=== PATIENT | female | born 1955 | race Caucasian/White ===

== ENCOUNTER → 2017-02-07 | Outpatient (CLI) | payer BC ==
[~2017-02-07] MED LIST: ASCA500 PO; B-CO1TAB53 PO; CALC600T9 PO; CALCTAB5 PO; CHOL2000 PO; CYAN10005 PO; GLUC10007 PO; GLUCTAB7 PO; JUICE FESTIVE PO; LEVO75TA5 PO; LEVO88TA PO; LUTE6TAB PO; MULT-506 PO; VITA400C15 PO
--- NOTE | 2017-02-08 14:09 | MAMMOGRAPHY REPORT ---
BILATERAL DIGITAL SCREENING MAMMOGRAM TOMOSYNTHESIS WITH CAD: 02/07/2017 CLINICAL HISTORY: Routine screening. Patient has no complaints. TECHNIQUE: Breast tomosynthesis in addition to standard 2D mammography was performed. Current study was also evaluated with a Computer Aided Detection (CAD) system. COMPARISON: Comparison is made to exams dated: 01/18/2016 mammogram, 01/14/2014 mammogram, 01/15/2015 jeremy mogram, 12/14/2012 mammogram, 12/14/2011 mammogram, and 12/13/2010 mammogram - [facility] BREAST COMPOSITION: There are scattered areas of fibroglandular density in both breasts. FINDINGS: No suspicious mass, architectural distortion or cluster of microcalcifications is seen. IMPRESSION: ACR BI-RADS CATEGORY 1: NEGATIVE There is no mammographic evidence of malignancy. A 1 year screening mammogram is recommended. The p atient will receive written notification of the results. Approximately 10% of breast cancers are not detected with mammography. A negative mammographic repor t should not delay biopsy if a clinically suggestive mass is present. Brenda spaulding/jeff:02/07/2017 16:46:21 Slab Lifting Engineer: Nicole WOOD(Chase)([place]), [facility] letter sent: Normal 1/2 BI-RADS Code: ACR BI-RADS Category 1: Negative
== END | disposition home or self-care (01) ==
LOC: C.MAMM 14:39
PROVIDERS: ATTEND Obstetrics & Gynecology
DX: Z12.31 Encounter for screening mammogram for malignant neoplasm of breast (principal)

== ENCOUNTER → 2017-03-03 | Outpatient (CLI) | payer BC ==
[~2017-03-03] MED LIST changes: -B-CO1TAB53 PO; -CALC600T9 PO; -GLUCTAB7 PO; -JUICE FESTIVE PO; -LEVO88TA PO
--- NOTE | 2017-03-03 13:48 | MAMMOGRAPHY REPORT ---
ULTRASOUND OF LEFT BREAST: 03/03/2017 CLINICAL HISTORY: The patient reports a painful erythematous lump at the beginning of January in her ster nal region. She was placed on antibiotics and her symptoms resolved. She feels an intermittent tiny residual lump in the region but no longer has any pain or erythema. COMPARISON: Comparison is made to exams dated: 02/07/2017 mammogram and 01/18/2016 mammogram - [facility]. TECHNIQUE: Real-time targeted ultrasound was performed of the left sternal region. FINDINGS: Real-time, high resolution targeted ultrasound was performed of the area of the prior erythematous pa inful lump pointed out by the patient in the midsternal region. At the site of the palpable lump the re is a small elongated ill-defined hypoechoic region within the skin, measuring 7 x 1 x 7 mm. Given the intradermal location, it is benign and given the clinical history likely represents a resolving inflammatory/infectious skin process such as an inflamed/infected epidermal inclusion or sebaceous cy st. No suspicious mass is noted. IMPRESSION: ACR BI-RADS CATEGORY 2: BENIGN Ill-defined 7 x 1 mm hypoechoic region within the skin at the site of the prior erythematous painful lump in the sternal region. Given the clinical history and given the intradermal location, it is clari ign and likely represents a resolving inflammatory/infectious process such as an inflamed/infected ep idermal inclusion or sebaceous cyst. There is no sonographic evidence of malignancy. Recommend clinical follow-up. Return to annual mammogram screening schedule is recommended. The pat ient was verbally notified of the results. Johanna Gaona M.D. ah/:03/03/2017 10:01:09 Lap Grinder: Maribel BARTHOLOMEW)([place]), [facility] letter sent: Normal 1/2 BI-RADS Code: ACR BI-RADS Category 2: Benign
== END | disposition home or self-care (01) ==
LOC: C.MAMM 09:39
PROVIDERS: ATTEND Nurse Practitioner Adult Health
DX: L98.9 Disorder of the skin and subcutaneous tissue, unspecified (principal)

== ENCOUNTER → 2017-04-26 | Day surgery (SDC) | payer BC ==
[2017-04-14 11:05] VITALS: BMI 26.0
[~2017-04-26] VITALS: Ht 157.5 cm; Wt 65.9 kg
[~2017-04-26] MED LIST changes: +B-CO1TAB53 PO; +CALC600T9 PO; -CALCTAB5 PO; +EpHEDrine SULFATE 50MG/5ML SYR ONE; -GLUC10007 PO; +GLUCTAB7 PO; +JUICE FESTIVE PO; -LEVO75TA5 PO; +LEVO88TA PO; +LIDOCAINE HCL 2% 2 ML VIAL (20MG/ML) ONE; -LUTE6TAB PO; +PROPOFOL IV EMULSION 10 MG/ML 20 ML VIAL IV ONE; +SODIUM CHLORIDE 0.9% 500ML 500 ML IV ONE
[2017-04-26 09:43] VITALS: TEMP 36.4
--- NOTE | 2017-04-26 09:43 | Endo History and Physical ---
History & Physical Date of Service: Apr 26, 2017. Chief Complaint: History of colon polyps Referring Physician: Dr. Barraza History of Present Illness 61 yo CF who presents for colonoscopy secondary to history of colon polyps. Past Medical History Arthritis, Thyroid Disease Past Surgical History Hx Cardiac Surgery: No Hx Internal Defibrillator: No Hx Pacemaker: No Hx Abdominal Surgery: No Hx of Implantable Prosthesis: No Hx Post-Op Nausea and Vomiting: No Hx Cancer Surgery: No Hx Thoracic Surgery: No Hx Orthopedic: Yes (LT TISHA) Hx Urinary Tract Surgery: No Family History None Social History Smoking Status: Never Smoker Hx Substance Use: No Hx Alcohol Use: Yes (SOCIAL/OCCASIONAL) Allergies Coded Allergies: Sulfamethoxazole w/Trimethoprim (Verified Allergy, Severe, RASH, 04/26/17) Current Medications Reported Home Medications Medications Dose Route/Sig Max Daily Dose Days Date Category [Juice Festive] 2 Tabs PO QPM 04/14/17 Reported Calcium + D (Calcium Carbonate-Vitamin D) 1 Tab Tab 1 Tab PO QPM 04/14/17 Reported Glucosamine Chondroitin (Ehqfuunnwjp-Loegatfxswe-Bgu C-) 1 Tab Tab 1 Tab PO QPM 04/14/17 Reported Super B-Complex (B-Complex W/Biotin & Folic Aci) 1 Tab Tab 1 Tab PO QPM 04/14/17 Reported Synthroid (Levothyroxine Sodium) 88 Mcg Tab 88 Mcg PO QAM 04/14/17 Reported Vitamin C (Ascorbic Acid) 500 Mg Tab 500 Mg PO QPM 01/26/16 Reported Vitamin E (he-Szjpr-Shqrxzgcaz Acetate) 400 Inter.unit Cap 400 Inter.unit PO QPM 01/26/16 Reported Vitamin B-12 (Cyanocobalamin) 1,000 Mcg Tab 1,000 Mcg PO QPM 01/26/16 Reported Vitamin D3 (Cholecalciferol) 2,000 Unit Cap 1 Cap PO QPM 05/11/15 Reported Multivitamin (Multivitamins) Tab 2 Tab PO QPM 05/11/15 Reported Vital Signs Weight (Kilograms): 65.91 Height (Feet): 5 Height (Inches): 2 Physical Exam General Appearance: WD/WN, no apparent distress Respiratory/Chest: Auscultation: breath sounds normal Cardiovascular: Heart Auscultation: RRR Abdomen: Bowel Sounds: normal Inspection & Palpation: soft, non-distended, no tenderness, guarding & rebound Assessment and Plan Assessment: 61 yo CF who presents for colonoscopy secondary to history of colon polyps. Plan: Proceed with colonoscopy.
[2017-04-26 09:44] VITALS: Ht 157.5 cm; Wt 65.9 kg
--- NOTE | 2017-04-26 11:14 | GI REPORT ---
Procedure Date: 04/26/2017 10:37 AM THIS REPORT HAS BEEN AMENDED Addendum Number: 1 Addendum Date: 04/26/2017 11:28:07 AM Polyp was not collected for histologic evaluation. Recommend repeat colonoscopy in 5 years. Procedure: Colonoscopy Indications: Screening for colorectal malignant neoplasm Medicines: Monitored Anesthesia Care Complications: No immediate complications. Estimated Blood Loss: Estimated blood loss: none. Procedure: Pre-Anesthesia Assessment: - Prior to the procedure, a History and Physical was performed, and patient medications and allergies were reviewed. The patient's tolerance of previous anesthesia was also reviewed. The risks and benefits of the procedure and the sedation options and risks were discussed with the patient. All questions were answered, and informed consent was obtained. Prior Anticoagulants: The patient has taken no previous anticoagulant or antiplatelet agents. ASA Grade Assessment: II - A patient with mild systemic disease. After reviewing the risks and benefits, the patient was deemed in satisfactory condition to undergo the procedure. After I obtained informed consent, the scope was passed under direct vision. Throughout the procedure, the patient's blood pressure, pulse, and oxygen saturations were monitored continuously. The scope was introduced through the anus and advanced to the terminal ileum. The colonoscopy was performed without difficulty. The patient tolerated the procedure well. The quality of the bowel preparation was good. The terminal ileum, ileocecal valve, appendiceal orifice, and rectum were photographed. Findings: A 5 mm polyp was found in the ascending colon. The polyp was sessile. The polyp was removed with a hot snare. Resection and retrieval were complete. Multiple small-mouthed diverticula were found in the sigmoid colon. Non-bleeding internal hemorrhoids were found during retroflexion. The hemorrhoids were small. Impression: - One 5 mm polyp in the ascending colon, removed with a hot snare. Resected and retrieved. - Diverticulosis in the sigmoid colon. - Non-bleeding internal hemorrhoids. Recommendation: - Resume previous diet. - Continue present medications. - Repeat colonoscopy for surveillance based on pathology results. - Return to primary care physician as previously scheduled. Elmer Alex BergerDO 04/26/2017 11:14:19 AM This report has been signed electronically. Note Initiated On: 04/26/2017 10:37 AM I attest to the content of the Intraoperative Record and orders documented therein, exceptions below Elmer Johnson Ab, 04/26/2017 11:28:34 AM This report has been signed electronically.
--- NOTE | 2017-04-26 11:19 | Discharge Instructions ---
Endoscopy Patient Instructions Date / Procedure(s) Performed Apr 26, 2017. Colonoscopy Allergy Information Coded Allergies: Sulfamethoxazole w/Trimethoprim (Verified Allergy, Severe, RASH, 04/26/17) Discharge Date / Findings Apr 26, 2017. Colon polyp Diverticulosis Internal hemorrhoids Medication Instructions OK to resume all medications today as prescribed Reported Home Medications Medications Dose Route/Sig Max Daily Dose Days Date Category [Juice Festive] 2 Tabs PO QPM 04/14/17 Reported Calcium + D (Calcium Carbonate-Vitamin D) 1 Tab Tab 1 Tab PO QPM 04/14/17 Reported Glucosamine Chondroitin (Qmnjbtuzkjc-Lqewyjenfor-Vjo C-) 1 Tab Tab 1 Tab PO QPM 04/14/17 Reported Super B-Complex (B-Complex W/Biotin & Folic Aci) 1 Tab Tab 1 Tab PO QPM 04/14/17 Reported Synthroid (Levothyroxine Sodium) 88 Mcg Tab 88 Mcg PO QAM 04/14/17 Reported Vitamin C (Ascorbic Acid) 500 Mg Tab 500 Mg PO QPM 01/26/16 Reported Vitamin E (yh-Zqkvc-Zgtfqesgbm Acetate) 400 Inter.unit Cap 400 Inter.unit PO QPM 01/26/16 Reported Vitamin B-12 (Cyanocobalamin) 1,000 Mcg Tab 1,000 Mcg PO QPM 01/26/16 Reported Vitamin D3 (Cholecalciferol) 2,000 Unit Cap 1 Cap PO QPM 05/11/15 Reported Multivitamin (Multivitamins) Tab 2 Tab PO QPM 05/11/15 Reported Provider Instructions Activity Restrictions - No exercising or heavy lifting for 24 hours. - Do not drink alcohol the day of the procedure. - Do not drive a car or operate machinery until the day after the procedure. - Do not make any important decisions or sign important papers in 24 hours after the procedure. Following Day: - Return to full activity which may include returning to work/school. Diet Start your diet with liquids and light foods (jello, soup, juice, toast). Then eat your usual diet if not nauseated. Treatment For Common After Affects For mild abdominal pain, bloating, or excessive gas: - Rest - Eat lightly - Lie on right side Follow-Up Information Follow-up with DR VALADEZ as scheduled Anesthesia Information What You Should Know You have had a procedure that required some medicine to reduce anxiety and discomfort. This treatment is called moderate sedation. After receiving the treatment, you may be sleepy, but you will be able to breathe on your own. The effects of the treatment may last for several hours. Follow these instructions along with Activity/Diet recommendations noted above: * Do NOT do anything where dizziness or clumsiness would be dangerous. * Rest quietly at home today, then you can be up and about tomorrow. * Have a responsible person stay with you the rest of today. * You may have had an I.V. today. If so, you may take the dressing off later today. Recommendations Call your doctor if: * Trouble breathing * Continuous vomiting for more than 24 hours * Temperature above 101 degrees * Severe abdominal pain or bloating * Pain not relieved by pain medicine ordered * There is increased drainage or redness from any incision * A large amount of rectal bleeding greater than 2-3 tablespoons. (If you had a polyp/s removed or have hemorrhoids, a small amount of blood - from the rectum is to be expected.) * You have any unanswered questions or concerns. IN THE EVENT OF A SERIOUS EMERGENCY, GO TO THE NEAREST EMERGENCY ROOM Your discharge instructions were prepared by provider Elmer Berger. Patient Instructions Signature Page Carissa Stephen Patient (or Guardian) Signature/Date: I have read and understand the instructions given to me by my caregivers. Caregiver/RN/Doctor Signature/Date: The above-named patient and/or guardian has received patient instructions on this date. + Original Patient Signature Page (only) stays with chart. Please make copy for patient.
[2017-04-26 11:46] VITALS: BP 130/75; PULSE 66; O2SAT 100
--- NOTE | 2017-04-26 12:04 | Anesthesiology Progress Note ---
Anesthesia Post Op Note Date & Time Apr 26, 2017 at 12:04 Vital Signs Pain Intensity: 0 Vital Signs Past 12 Hours Date Time Temp Pulse Resp B/P (MAP) Pulse Ox O2 Delivery O2 Flow Rate FiO2 04/26/17 11:46 66 20 130/75 (93) 100 Room Air 04/26/17 11:31 71 20 118/68 (85) 99 Room Air 04/26/17 11:16 91 20 91/62 (72) 100 Room Air 04/26/17 09:43 36.4 70 20 148/72 (97) 96 Room Air Notes Mental Status: alert / awake / arousable, participated in evaluation Pt Amnestic to Procedure: Yes Nausea / Vomiting: adequately controlled Pain: adequately controlled Airway Patency, RR, SpO2: stable & adequate BP & HR: stable & adequate Hydration State: stable & adequate Anesthetic Complications: no major complications apparent
== END | disposition home or self-care (01) ==
LOC: C.GI 09:23
PROVIDERS: ATTEND Internal Medicine
DX: Z12.11 Encounter for screening for malignant neoplasm of colon (principal); D12.2 Benign neoplasm of ascending colon; K57.30 Diverticulosis of large intestine without perforation or abscess without bleeding; K64.8 Other hemorrhoids; Z86.010 Personal history of colon polyps; E07.9 Disorder of thyroid, unspecified; M19.90 Unspecified osteoarthritis, unspecified site; Z79.899 Other long term (current) drug therapy

== ENCOUNTER 2024-08-05 05:00 | Observation (INO) ==
--- NOTE | 2024-07-03 10:44 | PAT Medication Instructions ---
Medication Instructions Date of Service July 03, 2024 Home Medications Medication Instructions Recorded levothyroxine 100 mcg tablet 100 mcg PO QAM #90 tabs 07/11/23 calcium carbonate 1,200 mg PO QAM multivitamin 1 tab PO QAM vitamin B complex 1 tab PO DAILY Digestive Advantage Prob Gummy 2 tab PO QAM Vitamin C 2 cap PO QAM cholecalciferol (vitamin D3) 50 mcg (2,000 unit) tablet (Vitamin D3) 100 mcg PO QAM vitamin E 400 unit tablet 400 unit PO QAM levothyroxine 100 mcg tablet 100 mcg PO QAM STOP taking 2 weeks before surgery (or as soon as possible if surgery is within 2 weeks) vitamin E 400 unit tablet 400 unit PO QAM DO NOT take the morning of surgery calcium carbonate 1,200 mg PO QAM multivitamin 1 tab PO QAM vitamin B complex 1 tab PO DAILY Digestive Advantage Prob Gummy 2 tab PO QAM Vitamin C 2 cap PO QAM cholecalciferol (vitamin D3) 50 mcg (2,000 unit) tablet (Vitamin D3) 100 mcg PO QAM Take morning of surgery With a small sip of water, OTHERWISE NOTHING TO EAT OR DRINK AFTER MIDNIGHT: levothyroxine 100 mcg tablet 100 mcg PO QAM Other Notes If you have any questions please call us at [phone] or [phone] or [phone] or [phone]
--- NOTE | 2024-07-11 09:42 | Anesthesiology Consultation ---
Date of Service July 11, 2024 Assessment & Plan (1) Encounter for pre-operative examination: - PCP clearance 05/07/24 MN: "...here at the request of her surgeon...Using the revised cardiac cardiac index, she is at low risk for adverse outcomes with non- cardiac surgery. She is acceptable risk for surgery..." - Outpatient joint assessment: Patient is currently scheduled for inpatient pathway. If re-evaluated and patient/surgeon requests outpatient pathway, patient is acceptable candidate for outpatient joint program from anesthesia standpoint pending surgeon's office assessment of pt motivation/support/completion of same day joint program preop requirements. Chart Review Chart Review: Acceptable Risk for Surgery and Patient seen in Pre Admission Testing Teaching & Discussion Pre-Anesthesia Teaching/Discussion Notes: Instructed NPO after midnight before surgery, except medications with 15 cc of water. Medication instructions provided according to the PAT guidelines. History Surgery Operation Date: 08/05/24 08:50 Proposed Procedures p Right Total Hip Arthroplasty - Jimmy Jacobo MD Height/Weight Height: 5 ft 1 in Weight: 76.2 kg Allergies Allergy/AdvReac Type Severity Reaction Status Date / Time amoxicillin Allergy Severe Rash Verified 07/03/24 09:37 Bactrim Allergy Severe RASH Verified 04/26/17 09:41 sulfamethoxazole Allergy Severe RASH Verified 07/03/24 09:37 trimethoprim Allergy Severe RASH Verified 07/03/24 09:37 Medications Home Medications Medication Instructions Recorded Confirmed Last Taken calcium carbonate 1,200 mg PO QAM 02/04/22 07/03/24 04/24/22 multivitamin 1 tab PO QAM 02/04/22 07/03/24 04/24/22 vitamin B complex 1 tab PO DAILY 02/04/22 07/03/24 04/24/22 Digestive Advantage Prob Gummy 2 tab PO QAM 04/19/22 07/03/24 04/24/22 Vitamin C 2 cap PO QAM 04/19/22 07/03/24 04/24/22 cholecalciferol (vitamin D3) 50 100 mcg PO QAM 04/19/22 07/03/24 04/24/22 mcg (2,000 unit) tablet (Vitamin D3) vitamin E 400 unit tablet 400 unit PO QAM 04/19/22 07/03/24 04/24/22 levothyroxine 100 mcg tablet 100 mcg PO QAM #90 tabs 07/11/23 07/03/24 Unknown Past Medical History Medical History (Updated 07/11/24 @ 09:51 by Jacqueline Marr PA-C) Arthritis Diverticular disease denies diverticulitis Dyslipidemia History of anxiety History of depression Hypothyroidism Osteopenia Patient denies h/o stroke, seizures, heart attack, heart failure, DM, HTN, blood clots/DVTs or blood transfusions. Exercise / Class Metabolic Activity II 4-5 Yardwork/Stairs/Walk up hill (denies chest discomfort or shortness of breath with one flight of stairs) Past Family History Family History Mother Myocardial infarction Diabetes Father Diabetes Sister Asthma Other Colon cancer Denies family history of Ovarian cancer Prostate cancer Breast cancer Past Surgical History Surgical History History of cataract surgery bilat History of hip replacement left hip may 2015 History of tooth extraction dental implant Hx of colonoscopy Past Anesthesia History No Hx of Anesthesia Complications and No Family Hx of Anesthesia Complications History of PONV No Hx of PONV and No Hx of Motion Sickness Social History Smoking Status: Never smoker Do You Dip or Chew Tobacco: No Hx Alcohol Use: Yes Alcohol type: wine alcohol intake frequency: a few times a week Hx Substance Use: No substance use type: does not use Review of Systems Patient denies chest pain, shortness of breath, dyspnea on exertion, snoring, witnessed apneas, reflux, fever, chills, cough, wheezing, or palpitations. Physical Exam Vital Signs Vitals BP 132/83 P 71 TEMP 98.2 SP02 98% on RA RESP 18 Physical Patient resting comfortably in chair in no acute distress, alert and oriented, responding appropriately throughout visit Full cervical extension range of motion without pain TMD 3.5 finger breadths Mallampati Score 2 Dentition: implant, denies chipped or loose teeth, caps/crowns, or bridges Lungs: normal respiratory effort. Good air movement, clear throughout to auscultation, no adventitious breath sounds Cardiac: regular rate and rhythm, no murmurs noted Carotid arteries: negative bruit bilat Lab Results Anesthesia Preop Results Results Anesthesia Widget: WBC 7.94 K/ul (4.8-10.8) 07/11/24 Hgb 13.8 g/dl (12.0-16.0) 07/11/24 Hct 40.0 % (37.0-47.0) 07/11/24 Plt 292 K/uL (130-400) 07/11/24 Na 140 mmol/L (136-145) 07/11/24 K 4.0 mmol/L (3.5-5.1) 07/11/24 Cl 109 mmol/L (98-107) H 07/11/24 CO2 22 mmol/L (21-32) 07/11/24 BUN 22 mg/dl (6-23) 07/11/24 Creat 0.92 mg/dl (0.6-1.2) 07/11/24 Glucose Level 107 mg/dl (70-99(Fasting)) H 07/11/24 PT 10.6 Seconds (9.0-12.0) 07/11/24 PTT 26 Seconds (21-31) 07/11/24 INR 1.0 (0.9-1.1) 07/11/24 Blood Type O Positive 07/11/24 Antibody Screen NEGATIVE 07/11/24 Testing Electrocardiogram Date: 07/11/24 NSR, rate 72 bpm Right atrial enlargement Nonspecific ST abnormality Chest X-Ray Date: 07/11/24 No acute chest disease.
--- NOTE | 2024-08-02 08:53 | History & Physical Report ---
Date of Service August 02, 2024 Assessment & Plan (1) Arthritis of right hip: 68-year-old female status post a left hip replacement with a in the past with right hip arthritis. As above for couple years. She failed conservative measures. It does appear that the pain is coming from her hip. She like to henriquez ve her hip fixed. Plan will going taken the operating good right total hip replacement. The risks Mente this procedure explained to the patient to include but not limited to a DVT PE infection neurological intravascular bleeding palm pain limb range of motion sepsis incomplete relief of symptoms need for further surgery in the future. The patient understands and desires to proceed. Informed consent was obtained. Will likely use a Prevena VAC postoperatively. She is will stay in the hospital overnight and hopeful discharge postoperative day 1. Will use aspirin for DVT prophylaxis. (2) History of hip replacement: (3) History of colon polyps: (4) Anxiety: (5) Depression: (6) Diverticulosis: (7) Dyslipidemia: (8) Hypothyroidism: History of Present Illness Chief Complaint: . Right hip pain. Primary Care Provider: Brigid Barraza MD . The patient is a 68-year-old female well-known to me from her previous left hip replacement done 2015. She is done well on the side. Over the past 2 years she has developed increased pain discomfort her right hip. She had an intra- articular injection by Dr. Liriano which helped her for short period of time. Scribes mostly groin and thigh pain. Described to gotten worse over time. This is what she remembers as her other hip pain before she had surgery. She would like to have her right hip replaced. Allergies Allergy/AdvReac Type Severity Reaction Status Date / Time amoxicillin Allergy Severe Rash Verified 07/03/24 09:37 Bactrim Allergy Severe RASH Verified 04/26/17 09:41 sulfamethoxazole Allergy Severe RASH Verified 07/03/24 09:37 trimethoprim Allergy Severe RASH Verified 07/03/24 09:37 Home Medications Medication Instructions Recorded Confirmed Type calcium carbonate 1,200 mg PO QAM 02/04/22 07/03/24 History multivitamin 1 tab PO QAM 02/04/22 07/03/24 History vitamin B complex 1 tab PO DAILY 02/04/22 07/03/24 History Digestive Advantage Prob Gummy 2 tab PO QAM 04/19/22 07/03/24 History Vitamin C 2 cap PO QAM 04/19/22 07/03/24 History cholecalciferol (vitamin D3) 50 100 mcg PO QAM 04/19/22 07/03/24 History mcg (2,000 unit) tablet (Vitamin D3) vitamin E 400 unit tablet 400 unit PO QAM 04/19/22 07/03/24 History levothyroxine 100 mcg tablet 100 mcg PO QAM #90 tabs 07/22/24 Rx Past Med/Surg History Problem List Arthritis of right hip History of colon polyps Anxiety (Acute) Depression (Acute) Diverticulosis (Acute) Dyslipidemia (Acute) no meds, monitoring Hypothyroidism (Acute) Internal hemorrhoids (Acute) Osteopenia (Acute) S/P hip replacement (Acute) Vitamin D deficiency (Acute) Medical History Diverticular disease denies diverticulitis Arthritis History of anxiety History of depression Osteopenia Dyslipidemia Hypothyroidism Surgical History History of cataract surgery bilat History of tooth extraction dental implant Hx of colonoscopy History of hip replacement left hip may 2015 Family History Mother Myocardial infarction Diabetes Father Diabetes Sister Asthma Other Colon cancer Denies family history of Ovarian cancer Prostate cancer Breast cancer Social History Smoking Status: Never smoker Second Hand Exposure: No; Do You Dip or Chew Tobacco: No; Tobacco Cessation Education Requested by Patient: No Hx Alcohol Use: Yes Alcohol type: wine Alcohol Intake Frequency: 2-3 x/Week Alcohol Intake Frequency Comment: 1-2 / week Hx Substance Use: No Preferred Language: Danish Communication Ability: Effective Visual Impairment: No Limitations Hearing Ability: Hard of Hearing [place] Operator Required: No Beliefs That Will Affect Care: None marital status: Current Living Situation: Spouse current occupational status: retired current occupation: used to work at [employer] Other Information That Helps Us Care for You: No Feels Safe at Home: Yes Safety Concerns: Feels Safe At This Time Childhood Exposure to Second-Hand Smoke: No Diet: regular caffeine: Yes Dental Care, Regularly: Yes Physical Activity Frequency: Daily Seatbelt Use: always Sunscreen Use: Yes Assistive Devices: Glasses Review of Systems All systems reviewed & are unremarkable except as noted in HPI & below. Physical Exam . Physical examination reveals a pleasant middle-age female. Looks to be in good health. Examination of the right hip reveals a patient walks with a slightly antalgic gait. Leg lengths. Pretty equal. Maybe just a trace bit short on the side. She is got marked pain with any type of hip motion. She can internally rotate to neutral. Negative straight leg raise. No knee effusion. She is neurologically intact. Constitutional WD/WN, vitals as above Neck trachea midline, no thyromegaly Respiratory normal respiratory effort, lungs clear to auscultation Cardiovascular RRR, no murmur, no edema Gastrointestinal (Abdomen) normal bowel sounds, soft, nontender, no hepatosplenomegaly Results & Data Results & Data Laboratory Results . Diagnostic Findings . X-rays of the left hip from February were reviewed. That shows moderately advanced hip arthritis. She has near complete loss of the joint space. Her right hip replacement looks to be in good position without problems. PG Care Time/CCT Total # of Minutes Spent Total Time Spent with Patient: Total time spent is greater than 50% in coordination of care (as documented) at patient's floor/unit and/or counseling patient: Coding Level of Care Code None Diagnoses Arthritis of right hip M16.11 History of hip replacement Z96.649 History of colon polyps Z86.010 Anxiety F41.9 Depression F32.9 Diverticulosis K57.90 Dyslipidemia E78.5 Hypothyroidism E03.9
[2024-08-05] MEDS: ACETAMINOPHEN 500 MG TAB PO SCH ×2 (05:44→10:11)
[2024-08-05] MEDS: METOCLOPRAMIDE HCL 10 MG TABLET PO SCH (05:44)
[2024-08-05] MEDS: FAMOTIDINE 20 MG TAB PO SCH (05:44)
[2024-08-05] MEDS: LR 500ML BOLUS, THEN 15ML/HR IV SCH (05:44)
[2024-08-05] MEDS: CeleBREX 200 MG CAP PO SCH (05:44)
[2024-08-05] MEDS: LR 60ML/HR IV SCH (05:45)
[2024-08-05] MEDS ORDERED: ROPIVACAINE 0.5% 5 MG/ML 30 ML VIAL ONE (06:23)
[2024-08-05] MEDS ORDERED: PROPOFOL IV EMULSION 10 MG/ML 20 ML VIAL IV ONE (06:32)
[2024-08-05] MEDS ORDERED: LIDOCAINE 2% 2 ML VIAL/AMP(20MG/ML) INFIL ONE (06:32)
[2024-08-05] MEDS ORDERED: ONDANSETRON INJ 2 MG/ML 2 ML VIAL ONE (06:32)
[2024-08-05] MEDS ORDERED: KETAMINE HCL 10MG/ML SYR ONE (06:33)
[2024-08-05] MEDS ORDERED: GLYCOPYRROLATE 0.2 MG/ML VIAL ONE (06:33)
[2024-08-05] MEDS ORDERED: fentaNYL citrate PF 100 MCG/2 ML VIAL ONE (06:33)
[2024-08-05] MEDS ORDERED: MIDAZOLAM HCL 1 MG/ML 2ML VIAL ONE (06:33)
--- NOTE | 2024-08-05 06:43 | History & Physical Bridge Note ---
Date of Service August 05, 2024 History & Physical Bridge Note I have examined the patient, reviewed the History & Physical and in the interval since the performance of the History & Physical I have noted the following changes of clinical significance: no changes noted
[2024-08-05] MEDS: TRANEXAMIC ACID 1,000 MG **IV Pre-op IV SCH (06:45)
[2024-08-05] MEDS: ceFAZolin 2000MG 2,000 MG/15 ML SYR IV SCH (06:54)
[2024-08-05] MEDS ORDERED: ePHEDrine sulfate 50 MG/5 ML SYR ONE (07:16)
[2024-08-05] MEDS ORDERED: PHENYLEPHRINE 100MCG/ML 5ML SYR ONE (07:16)
[2024-08-05] MEDS: BUPIVACAINE/EPINEPHRINE 0.5% MPF 1:200,000 30 ML VIAL ONE (07:28)
--- NOTE | 2024-08-05 08:31 | Operative Report ---
PG Post Operative Report Pre & Post Diagnosis Operation Date: 08/05/24 07:00 Pre-Op Diagnosis: Right Hip Degenerative Joint Disease Post-Op Diagnosis: Right Hip Degenerative Joint Disease I identified the patient and participated in the time-out.: Yes Procedure Operation Date: 08/05/24 07:00 Actual Procedures p Right Total Hip Arthroplasty, Uncemented(Right) - Jimmy Jacobo MD Surgeon Jimmy Jacobo MD Vacuum Form Operator Jose Fraser PA-C Estimated Blood Loss 150 Findings Consistent with Post-Op Diagnosis Operative findings revealed advanced right hip DJD. She had grade 4 [id number] disease of the femoral head and acetabulum. Moderate-sized hip joint effusion. Specimens Right femoral head sent for pathology. Anesthesia Type Spinal MAC Complications none Disposition Accompanied Patient To Recovery: No Indications Patient is a 68-year-old female who underwent a left hip replaced about 9 years ago. Over the past 2 years she developed increased pain discomfort in the right hip. She failed conservative measures. X-rays show advanced hip arthritis. She was treated with an intra-articular hip joint injection which helped her significantly for a couple weeks. She continued be disabled by the pain and elected proceed with total hip arthroplasty. Description of Procedure Operative implants consist of: 1 Biomet G7 size 50 mm acetabular shell. 2. 6.5 cancellous acetabular screws 1 of 35 mm length and 1 of 20 mm leg. 3. [place] hole licensed loan officer assistant. 4. Highly cross-linked polyethylene liner with a 50 mm outer diameter and 36 mm inner diameter. 5. DePuy Karaya size 10 KLA femoral stem. 6. +5/36 mm ceramic articular ball. The patient was taken to the op room, identified, placed on the operating table in the supine position. All conductors were appropriately padded. IV antibiotics tried by anesthesia team. A a spinal anesthetic and been implemented holding area. A Gama catheter was placed in a sterile fashion. The patient was then placed in the left lateral decubitus position. An axillary roll was placed. Distal Birkett position was used for positioning. The right hip and leg were then prepped and draped in usual sterile fashion. A posterolateral approach to the right hip was then performed to a curvilinear incision centered over the greater trochanter. Sharp dissection was got through subcutaneous tissue down to the level of the gluteal fascia. She did have a fairly thick soft tissue envelope. The IT band gluteal fascia was then incised longitudinally in line with the skin incision. The underlying greater troches bursa was excised. The piriformis and external rotators along with the posterior hip joint capsule then released from the posterior aspect of the hip as a single layer. The hip was internally rotated and dislocated. A femoral neck osteotomy cut was made with Final Cut about 11 mm above the lesser trochanter. Femoral head was removed and sent for pathology. The femur was retracted anteriorly. Attention drawn the acetabulum. The acetabulum labrum was excised. The pulmonary fat was excised. Sequential reaming of the acetabulum was then performed again with a size 43 and progressing up to a 49. I reamed a little bit with a 50 reamer and then placed a 50 mm Biomet G7 acetabular shell in about 40 degrees lateral opening and 20 degrees of anteversion. It was fixed with two 6.5 screws. Some anterior osteophytes were removed. Trial liner was placed. Attention drawn the femur. The proximal femur was entered with a cookie cutter followed by canal finder. I then broached beginning with a size 8 and progressing up to a 10. We got excellent fit and the 10. Calcar reamer was used to remove the calcar. Then trialed the hip and the +5 articular ball provided appropriate soft tissue tension. Excellent stability with stability in full extension and external rotation and flexion to 90 degrees into rotation over 50 degrees. Leg lengths seemed equal. We elected to place these implants. All trial implants were removed. An apex hole licensed loan officer assistant was placed. Highly cross-linked polyethylene liner was placed. A size 10 KLA femoral stem was impacted in position. A +5/36 mm ceramic articular ball was placed. Hip was located once again found to be stable. Attention drawn toward closing. The wounds irrigated coconuts of pulsatile lavage solution. I injected locally with 60 cc of half percent Marcaine with epinephrine. The posterior capsule and external rotators were then repaired through drill holes in the posterior trochanter. The IT band gluteal fascia was then closed with #1 PDS suture in running fashion. Subcutaneous tissues then closed with 2 layers of the deep layer #2 Vicryl suture in the subcutaneous tissues with 2-0 Dexon suture in a buried interrupted fashion. The skin was closed with skin qasim. A Prevena VAC dressing was applied due to the thick soft tissue envelope. The patient was then transferred to the recovery room in stable condition. The patient tolerated the procedure well and there were no complications. Jose Fraser, my physician medical assistant float, was present for the entire procedure. His assistance was essential and required for appropriate patient positioning, prepping and draping, surgical exposure, performing the technical details of the operation, placement the implants, closure of the wound, and placement of the sterile bandage. I attest to the content of the Intraoperative Record and any orders documented therein. Any exceptions are noted below.
[2024-08-05] MEDS ORDERED: ONDANSETRON INJ 2 MG/ML 2 ML VIAL IV PRN (09:29)
[2024-08-05] MEDS ORDERED: bisacodyL 10 MG SUPP PR PRN (09:29)
[2024-08-05] MEDS ORDERED: MAGNESIUM HYDROXIDE SUSP 30 ML UDC PO PRN (09:29)
[2024-08-05] MEDS ORDERED: NON-FORMULARY MEDICATION (Multivitamin tablet) PO SCH (09:29)
[2024-08-05] MEDS ORDERED: VITAMIN C PO SCH (09:29)
[2024-08-05] MEDS ORDERED: [UNRECOGNIZED DRUG - OTHER] PO SCH (09:29)
[2024-08-05] MEDS ORDERED: ALUMINUM/MAGNESIUM SUSP 30 ML UDC PO PRN (09:29)
[2024-08-05] MEDS ORDERED: HYDROmorphone INJ 0.5 MG/0.5 ML SYR IV PRN (09:29)
[2024-08-05] MEDS ORDERED: NALOXONE HCL 0.4 MG/1 ML VIAL/CARP IV PRN (09:29)
[2024-08-05] MEDS ORDERED: METOCLOPRAMIDE HCL INJ 5 MG/ML 2 ML VIAL IV PRN (09:29)
[2024-08-05] MEDS ORDERED: traMADol HCL 50 MG TABLET PO PRN (09:29)
[2024-08-05] MEDS: CHOLECALCIFEROL 25 MCG (1000 UNITS) TAB PO SCH (10:11)
[2024-08-05] MEDS: CALCIUM CARBONATE 1250MG TAB PO SCH (10:11)
[2024-08-05] MEDS: VITAMIN B COMPLEX TAB PO SCH (10:12)
[2024-08-05] MEDS: TOCOPHERYL, DL-ALPHA 400 UNITS 180 MG CAP PO SCH (10:12)
[2024-08-05] MEDS: ASPIRIN 81 MG ECTAB PO SCH (10:13)
[2024-08-05] MEDS: MULTIVITAMIN TAB PO SCH (10:13)
[2024-08-05] MEDS: LEVOTHYROXINE SODIUM 100 MCG TABLET PO SCH (10:13)
[2024-08-05] MEDS: DOCUSATE SODIUM 100 MG CAP PO SCH (10:19)
[2024-08-05] MEDS: SENNA 8.6 MG TAB PO SCH ×2 (10:20→20:34)
[2024-08-05] MEDS: KETOROLAC TROMETHAMINE 15 MG/ML VIAL IV SCH (10:20)
--- NOTE | 2024-08-05 11:07 | Anesthesiology Progress Note ---
Date of Service August 05, 2024 Anesthesia Post Procedure Vital Signs Vital Signs: Temp Pulse Pulse Resp BP Pulse Ox O2 Del Method 08/05/24 10:23 36.8 C 79 16 177/88 H 99 Room Air 08/05/24 09:44 36.5 C 75 18 159/81 H 99 Room Air 08/05/24 09:37 Room Air 08/05/24 09:15 36.4 C L 71 16 147/81 H 100 Room Air 08/05/24 08:55 36.4 C L 70 12 139/69 99 Room Air 08/05/24 08:45 72 12 142/74 H 100 Room Air 08/05/24 08:35 70 12 131/66 100 Room Air 08/05/24 08:25 72 16 128/61 100 Oxymask 08/05/24 08:15 36.2 C L 82 14 141/61 H 99 Oxymask 08/05/24 05:30 36.8 C 76 20 176/69 H 95 Room Air O2 Flow Rate 08/05/24 10:23 08/05/24 09:44 08/05/24 09:37 08/05/24 09:15 08/05/24 08:55 08/05/24 08:45 08/05/24 08:35 08/05/24 08:25 3 08/05/24 08:15 6 08/05/24 05:30 Transfer of Care Handoff Completed per policy Notes Mental Status: alert / awake / arousable Patient Amnestic to Procedure: Yes Nausea / Vomiting: adequately controlled Pain: adequately controlled Airway Patency, RR, SpO2: stable & adequate BP & HR: stable & adequate Hydration State: stable & adequate Neuraxial Anesthesia: was administered and sensory block is resolving Anesthetic Complications: no major complications apparent
[2024-08-05] MEDS: ceFAZolin 1000MG 1,000 MG/7.5 ML SYR IV SCH (13:57)
[2024-08-05] MEDS: TRANEXAMIC ACID / 0.7% NACL 1,000 MG/100 ML BAG IV SCH (13:58)
[2024-08-05] MEDS: ASCORBIC ACID 500 MG TAB PO SCH (16:41)
--- NOTE | 2024-08-05 18:40 | XRay Report ---
Clinical History: Postoperative examination 2 views of the pelvis and right hip are submitted for review. Comparison is made to the prior examination dated 03/01/2024 Findings: No fracture is seen. There is a new right hip arthroplasty. There is an unchanged left hip arthroplasty. There is no definite sign of infection or loosening. No other osseous abnormality is identified. There are surgical skin qasim and pockets of air adjacent to the right hip Impression: 1. New right hip replacement 2. Unchanged left hip replacement Electronically signed by Onofre Spaulding 08-05-2024 6:40 PM
[2024-08-05 23:15] VITALS: RESP 16; O2SAT 97
[2024-08-06 03:54] VITALS: BP 121/76; PULSE 68; TEMP 98.1
[2024-08-06 05:47] LABS: Basophils # (auto) 0.04 K/uL (0.00-0.20); Basophils % (auto) 0.5 %; Eosinophils # (auto) 0.05 K/uL (0.00-0.50); Eosinophils % (auto) 0.6 %; Hematocrit (blood only) 36.1 % (37.0-47.0); Hemoglobin 12.4 g/dl (12.0-16.0); Immature Granulocytes # (auto) 0.02 K/uL (0.01-0.20); Immature Granulocytes % (auto) 0.3 %; Lymphocytes # (auto) 0.82 K/uL (1.20-3.40); Lymphocytes % (auto) 10.3 %; Mean Corpuscular Hemoglobin 32.1 pg (25.0-34.0); Mean Corpuscular Hgb Conc 34.3 g/dL (32.0-36.0); Mean Corpuscular Volume 93.5 fL (80.0-100.0); Mean Platelet Volume 10.8 fL (9.4-12.4); Monocytes # (auto) 0.68 K/uL (0.11-0.59); Monocytes % (auto) 8.5 %; Neutrophils # (auto) 6.36 K/uL (1.40-6.50); Neutrophils % (auto) 79.8 %; Platelet Count 221 K/uL (130-400); RDW Coefficient of Variation 12.4 % (11.5-14.5); RDW Standard Deviation 42.7 fL (36.4-46.3); Red Blood Count 3.86 M/uL (4.20-5.40); White Blood Count 7.97 K/ul (4.8-10.8)
[2024-08-06 06:02] LABS: BUN Creatinine Ratio 24.4 (10-20); Calcium 9.5 mg/dl (8.6-10.3); Creatinine Clr Calc Pharmacy 60.9 ml/min
[2024-08-06] MEDS: dexAMETHasone 10 MG in SYRINGE 0 ML IV SCH (08:05)
--- NOTE | 2024-08-06 10:44 | Orthopedic Progress Note ---
Date of Service August 06, 2024 Assessment & Plan (1) Status post right hip replacement: Plan: 68-year-old female postop day 1 from right hip replacement. She is doing well. Pains controlled. Hips located. She is neurologically intact. Plan: 1. DVT prophylaxis including thigh-high teds, SCDs, aspirin twice a day. 2. PT/OT. Weight-bear as tolerated. Right total hip protocol. 3. Pain control. Doing well with current pain regimen. 4. Disposition. Plan is to discharge to home with home health if he does okay in therapy today. Admission and Anticipated Discharge Date Admission Date: August 05, 2024 Subjective 68-year-old female postop day 1 from a right hip replacement. She is doing pretty well. Pains been controlled. No chest pain or shortness of breath. Not feeling dizzy or lightheaded. Has not gone through therapy quite yet. Hoping to go home today. Physical Exam Physical Exam: Physical examination was a pleasant middle-aged female. She is lying in bed looks comfortable. Examination of the right hip reveals the Prevena VAC dressing to be in place. Leg lengths are equal. Thigh is soft and supple. She can dorsiflex and plantarflex her foot appropriately. She is neurologically intact. Respiratory: normal respiratory effort, lungs clear to auscultation Cardiovascular: RRR, no murmur, no edema Gastrointestinal (Abdomen): normal bowel sounds, soft, nontender, no hepatosplenomegaly Results & Data Vital Signs (Past 12 Hours) Vital Signs Temp Pulse Resp BP Pulse Ox O2 Del Method 08/06/24 03:54 36.7 C 68 16 121/76 97 Room Air 08/05/24 23:15 36.9 C 75 16 145/81 H 97 Room Air Laboratory Results Hemoglobin is 12.4. Hematocrit is 36.1. Electrolytes are stable.
== END 2024-08-06 11:11 | disposition home health service (06) ==
LOC: 3E 05:00 → ASU 05:00